=== PATIENT | female | born 1980 | race Caucasian/White ===

== ENCOUNTER 2017-10-24 06:10 | Emergency (ER) | payer SELFPAY ==
[~2017-10-24] VITALS: Ht 154.9 cm; Wt 103.9 kg
[2017-10-24 06:18] VITALS: BP 112/74
--- NOTE | 2017-10-24 06:21 | NUR ---
PT TAKEN TO BED 1
[2017-10-24] MEDS ORDERED: KETOROLAC 60 MG/2 ML VIAL IM ONE (06:25)
--- NOTE | 2017-10-24 06:25 | NUR ---
37/F CAME IN ED, C/O 03/20 SHARP/ACHING R SHOULDER PAIN, X5 DAYS. PT DENIES TRAUMA, PT STATED THAT SHE "WOKE UP WITH A LUMP" ON R SHOULDER. PT WENT TO A MASSAGE THERAPIST WHO "POPPED THE LUMP IN." R SHOULDER NO OBVIOUS ABNORMALITIES, SKIN INTACT PINK WARM AND DRY, DENIES TENDERNESS. PT UNABLE TO LIFT R ARM OVER SHOULDER DUE TO PAIN. PT REPORTS TAKING IBUPROFEN AT 0200 WITH LITTLE RELIEF. PT DENIES N/V/D; AAOX4, PERRL, WITH EVEN AND STEADY GAIT; LUNGS CLEAR BL, BREATHING UNLABORED; HR EVEN AND REGULAR, BL PERIPHERAL PULSES PRESENT; BS ACTIVE X4, NO TENDERNESS TO PALPATION; PT DENIES ANY FEVER, CP, SOB, OR COUGH AT THIS TIME; VSS; PATIENT POSITIONED FOR COMFORT; HOB ELEVATED; BEDRAILS UP X2; BED DOWN.
--- NOTE | 2017-10-24 06:28 | NUR ---
DR MASTERS AT BEDSIDE TO EVALUATE PT.
[2017-10-24 06:57] VITALS: BP 128/92
--- NOTE | 2017-10-24 06:58 | NUR ---
Patient discharged with v/s stable. Written and verbal after care instructions given and explained. Patient alert, oriented and verbalized understanding of instructions. Ambulatory with steady gait. All questions addressed prior to discharge. ID band removed. Patient advised to follow up with PMD. Rx of MOTRIN 800MG, NORCO 5-325 given. Patient educated on indication of medication including possible reaction and side effects. Opportunity to ask questions provided and answered.
== END 2017-10-24 06:58 | disposition home or self-care (01) ==
LOC: MED 06:10
DX: M25.511 Pain in right shoulder (principal); F17.210 Nicotine dependence, cigarettes, uncomplicated
CPT/HCPCS: 96372; 99283; J1885